=== PATIENT | female | born 1985 | race Caucasian/White ===

== ENCOUNTER 2017-05-01 21:18 | Emergency (ER) | payer OTHER ==
[2017-05-01 22:10] LABS: BASOPHIL % 0.3 % (0-2); PLATELET COUNT 249 x10^3mcL (130-400); RED CELL DISTRIBUTION WIDTH 13.2 % (11.5-14.5)
[2017-05-01 22:18] LABS: CALCIUM 8.8 mg/dL (8.5-10.1); CARBON DIOXIDE 25.7 mmol/L (21-32); CHLORIDE SERUM 103 mmol/L (98-107); CREATININE SERUM 0.8 mg/dL (0.6-1.0); GFR1 > 60 mL/min; GLUCOSE SERUM 106 mg/dL (74-106); POTASSIUM SERUM 3.9 mmol/L (3.5-5.1); SODIUM SERUM 139 mmol/L (136-145)
[2017-05-01 22:24] LABS: ALBUMIN 3.2 g/dL (3.4-5.0); ALKALINE PHOSPHATASE 90 U/L (46-116); ALT/SGPT 15 U/L (14-59); AMYLASE 64 U/L (25-115); AST/SGOT 13 U/L (15-37); BILIRUBIN TOTAL 0.3 mg/dL (0.20-1.00); LIPASE 158 IU/L (73-393)
[2017-05-01 22:49] LABS: CK-MB < 0.5 ng/mL (0-3.6); CREATINE KINASE 35 U/L (26-192)
[2017-05-01 22:50] LABS: UA SPECIFIC GRAVITY 1.025 (1.005-1.035); microscopic required? YES; urine erythrocyte 1+ (NEGATIVE)
[2017-05-02 00:53] VITALS: BP 136/66
== END 2017-05-02 00:53 | disposition home or self-care (01) ==
LOC: ED 21:18
PROVIDERS: Emergency Medicine
DX: R53.1 Weakness (principal); M54.5 Low back pain; R42 Dizziness and giddiness; R19.7 Diarrhea, unspecified; J45.909 Unspecified asthma, uncomplicated; Z87.442 Personal history of urinary calculi
CPT/HCPCS: J1885; J7030

== ENCOUNTER 2017-08-27 18:20 | Emergency (ER) | payer OTHER ==
[~2017-08-27] VITALS: Ht 172.7 cm; Wt 132.4 kg
[2017-08-27 22:07] VITALS: BP 125/75
== END 2017-08-27 22:07 | disposition home or self-care (01) ==
LOC: ED 18:20
DX: M54.32 Sciatica, left side (principal); M54.31 Sciatica, right side
CPT/HCPCS: J1885

== ENCOUNTER 2018-02-06 22:39 | Emergency (ER) | payer OTHER ==
[~2018-02-06] VITALS: Ht 172.7 cm; Wt 146.2 kg
[2018-02-06 22:46] VITALS: Ht 172.7 cm; Wt 146.2 kg
[2018-02-07 00:43] VITALS: BP 111/52
== END 2018-02-07 00:43 | disposition home or self-care (01) ==
LOC: ED 22:39
DX: J06.9 Acute upper respiratory infection, unspecified (principal); R09.1 Pleurisy; J45.909 Unspecified asthma, uncomplicated
CPT/HCPCS: Q0092

== ENCOUNTER 2018-06-12 14:46 | Emergency (ER) | payer OTHER ==
[~2018-06-12] VITALS: Ht 172.7 cm; Wt 137.4 kg
[2018-06-12 14:56] VITALS: BP 127/72; Ht 172.7 cm; Wt 137.4 kg
== END 2018-06-12 17:00 | disposition home or self-care (01) ==
LOC: ED 14:46
DX: S86.911A Strain of unspecified muscle(s) and tendon(s) at lower leg level, right leg, initial encounter (principal); S66.911A Strain of unspecified muscle, fascia and tendon at wrist and hand level, right hand, initial encounter; J45.909 Unspecified asthma, uncomplicated; Z88.2 Allergy status to sulfonamides; W01.0XXA Fall on same level from slipping, tripping and stumbling without subsequent striking against object, initial encounter; Y93.89 Activity, other specified; Y92.89 Other specified places as the place of occurrence of the external cause; Y99.8 Other external cause status
CPT/HCPCS: A4570